=== PATIENT | female | born 1975 | race Caucasian/White ===

== ENCOUNTER 2017-03-01 15:55 | Emergency (ER) | payer OTHER ==
[~2017-03-01] VITALS: Ht 170.2 cm; Wt 92.3 kg
[~2017-03-01 15:55] MED LIST: HYDR-2768 PO; NAPR500 PO; PERC5TAB12 PO; SYNT137T PO; ZOFR4TAB3 PO
[2017-03-01 15:58] VITALS: BP 155/100; PULSE 71; RESP 19; TEMP 97.5; O2SAT 100
[2017-03-01] MEDS ORDERED: SODIUM CHLOR 0.9% 1000 ML INJ 1,000 ML IV SCH (16:07)
--- NOTE | 2017-03-01 16:09 | PD ---
HPI Chief Complaint: Abdominal Pain Time Seen by Provider: 16:03 Travel History International Travel<30 days: No Contact w/Intl Traveler<30days: No Traveled to known affect area: No History of Present Illness HPI 41-year-old female arrives to the ER with generalized abdominal pain for about 16 hours or so. It woke her up from sleep. She's had diarrhea and tenesmus essentially continuously. Nausea reported. No vomiting. No fever. Appetite decreased. No vaginal bleeding discharge or urinary complaint. Pain is constant and worse with palpation. PFSH Past Medical History Depression: Yes Diminished Hearing: No Immunizations Current: Yes Thyroid Disease: Yes Influenza Vaccination: Yes ?: Not LMP: 2 WEEKS : 1 Para: 1 Past Surgical History Cholecystectomy: Yes Social History Alcohol Use: Yes (SOCIAL) Tobacco Use: No Substance Use: No Allergies-Medications (Allergen,Severity, Reaction): Coded Allergies: Morphine (Verified Allergy, Intermediate, 03/01/17) Reported Meds & Prescriptions Reported Meds & Active Scripts Active Flagyl (Metronidazole) 500 Mg Tab 500 Mg PO TID 10 Days Cipro (Ciprofloxacin HCl) 500 Mg Tab 500 Mg PO BID 10 Days Phenergan (Promethazine HCl) 25 Mg Tab 25 Mg PO Q6H PRN Reported Clonazepam 0.5 Mg Tab 0.5 Mg PO HS Ambien (Zolpidem Tartrate) 10 Mg Tab 10 Mg PO HS PRN Zoloft (Sertraline HCl) 100 Mg Tab 100 Mg PO DAILY Synthroid (Levothyroxine Sodium) 137 Mcg Tab 137 Mcg PO DAILY Review of Systems Except as stated in HPI: all other systems reviewed are Neg General / Constitutional: No: Fever Gastrointestinal: Positive: Nausea, Diarrhea, Abdominal Pain, No: Vomiting, Hematemesis, Hematochezia, Constipation Physical Exam Narrative GENERAL: 41-year-old female well-nourished well-developed male to moderate distress secondary to pain SKIN: Focused skin assessment warm/dry. HEAD: Atraumatic. Normocephalic. EYES: Pupils equal and round. No scleral icterus. No injection or drainage. ENT: No nasal bleeding or discharge. Mucous membranes pink and moist. NECK: Trachea midline. No JVD. CARDIOVASCULAR: Regular rate and rhythm. No murmur appreciated. RESPIRATORY: Lungs clear. No tachypnea GASTROINTESTINAL: Soft. Diffuse nonspecific tenderness. MUSCULOSKELETAL: No obvious deformities. No clubbing. No cyanosis. No edema. NEUROLOGICAL: Awake and alert. No obvious cranial nerve deficits. Motor grossly within normal limits. Normal speech. PSYCHIATRIC: Appropriate mood and affect; insight and judgment normal. Data Data Last Documented VS Vital Signs Date Time Temp Pulse Resp B/P Pulse Ox O2 Delivery O2 Flow Rate FiO2 03/01/17 18:26 70 18 140/89 97 Room Air 03/01/17 15:58 97.5 VS reviewed Orders Complete Blood Count With Diff (03/01/17 16:07) Comprehensive Metabolic Panel (03/01/17 16:07) Lipase (03/01/17 16:07) Lactic Acid (03/01/17 16:07) Urinalysis - C+S If Indicated (03/01/17 16:07) Iv Access Insert/Monitor (03/01/17 16:07) Ecg Monitoring (03/01/17 16:07) Oximetry (03/01/17 16:07) Hydromorphone Pf Inj (Dilaudid Pf Inj) (03/01/17 16:15) Ondansetron Inj (Zofran Inj) (03/01/17 16:15) Sodium Chlor 0.9% 1000 Ml Inj (Ns 1000 M (03/01/17 16:07) Sodium Chloride 0.9% Flush (Ns Flush) (03/01/17 16:15) Ed Urine Pregnancytest Poc (03/01/17 16:07) Labs Laboratory Tests Test 03/01/17 03/01/17 03/01/17 16:20 17:17 18:10 White Blood Count 9.8 TH/MM3 Red Blood Count 5.11 MIL/MM3 Hemoglobin 14.6 GM/DL Hematocrit 43.5 % Mean Corpuscular Volume 85.0 FL Mean Corpuscular Hemoglobin 28.5 PG Mean Corpuscular Hemoglobin 33.5 % Concent Red Cell Distribution Width 13.2 % Platelet Count 323 TH/MM3 Mean Platelet Volume 9.4 FL Neutrophils (%) (Auto) 77.1 % Lymphocytes (%) (Auto) 17.1 % Monocytes (%) (Auto) 4.4 % Eosinophils (%) (Auto) 0.3 % Basophils (%) (Auto) 1.1 % Neutrophils # (Auto) 7.6 TH/MM3 Lymphocytes # (Auto) 1.7 TH/MM3 Monocytes # (Auto) 0.4 TH/MM3 Eosinophils # (Auto) 0.0 TH/MM3 Basophils # (Auto) 0.1 TH/MM3 CBC Comment DIFF FINAL Differential Comment Sodium Level 142 MEQ/L Potassium Level 3.8 MEQ/L Chloride Level 108 MEQ/L Carbon Dioxide Level 25.2 MEQ/L Anion Gap 9 MEQ/L Blood Urea Nitrogen 9 MG/DL Creatinine 0.75 MG/DL Estimat Glomerular Filtration 85 ML/MIN Rate Random Glucose 93 MG/DL Lactic Acid Level 1.3 mmol/L Calcium Level 8.7 MG/DL Total Bilirubin 0.4 MG/DL Aspartate Amino Transf 12 U/L (AST/SGOT) Alanine Aminotransferase 20 U/L (ALT/SGPT) Alkaline Phosphatase 75 U/L Total Protein 7.4 GM/DL Albumin 3.8 GM/DL Lipase 151 U/L Urine Color YELLOW Urine Turbidity CLEAR Urine pH 5.5 Urine Specific [place] 1.029 Urine Protein TRACE mg/dL Urine Glucose (UA) NEG mg/dL Urine Ketones TRACE mg/dL Urine Occult Blood NEG Urine Nitrite NEG Urine Bilirubin NEG Urine Leukocyte Esterase NEG Urine RBC 0-3 /hpf Urine WBC 0-2 /hpf Urine Squamous Epithelial 0-5 /hpf Cells Urine Bacteria OCC /hpf Urine Mucus MOD /lpf Microscopic Urinalysis Comment CULT NOT INDICATED MDM Medical Decision Making Medical Screen Exam Complete: Yes Emergency Medical Condition: Yes Medical Record Reviewed: Yes Differential Diagnosis Constipation, Gastritis, Acute Cholecystitis, Biliary Colic, Pancreatitis, SHABAZZ , Hepatitis, Bowel Obstruction, Cystitis, Mesenteric Ischemia, AAA, Appendicitis , Renal Stone/Hydronephrosis, GERD, perforated viscous Narrative Course CBC & BMP Diagram 03/01/17 16:20 03/01/17 17:17 LFTs/Lipase normal Lactic acid 1.3 Patient reports upon reassessment similar episode occurred about one month prior and resolved after she adopted a liquid diet. She wonders if diverticulitis is a consideration. It could be. Cipro Flagyl prescribed. Continue dietary modification. The patient is resting comfortably and feels better, is alert and in no distress. The patients results and examination findings were discussed. The repeat examination is unremarkable and benign. The history, exam, diagnostic testing, and current condition do not suggest any significant pathology to warrant further testing, continued ED treatment, admission, or surgical evaluation at this point. The vital signs have been stable. The patient does not have uncontrollable pain, intractable vomiting, or other significant symptoms. The patient's condition is stable and appropriate for discharge. The patient will pursue further outpatient evaluation with a primary care physician or other designated or consulting physician as indicated in the discharge instructions. The patient expressed understanding and was agreeable with this plan. Diagnosis Primary Impression: Diarrhea Qualified Code: R19.7 - Diarrhea, unspecified type Additional Impression: Abdominal pain Qualified Code: R10.9 - Abdominal pain, unspecified location Referrals: Primary Care Physician 2 days Additional Instructions: You have a choice when it comes to health care, and we are glad that you chose [email or web address]. Hopefully, we have met your expectations on today's visit. You are welcome to return to [email or web address] at any time, as we are committed to meeting the health care needs of our community. Med/Other Pt SpecificInfo: Prescription(s) given Scripts Metronidazole (Flagyl)500 Mg [id number] Mg PO TID 10 Days Ref 0 Prov:Mello Muñiz MD 03/01/17 Ciprofloxacin (Cipro)500 Mg [id number] Mg PO BID 10 Days Ref 0 Prov:Mello Muñiz MD 03/01/17 Promethazine (Phenergan)25 Mg Tab25 Mg PO Q6H PRN (Nausea/Vomiting) #10 TAB Ref 0 Prov:Mello Muñiz MD 03/01/17 Disposition: 01 DISCHARGE HOME Condition: Stable Mello Muñiz MD March 01, 2017 16:09
[2017-03-01] MEDS ORDERED: CLON0.5T PO (16:10)
[2017-03-01] MEDS ORDERED: LEVO-86 PO (16:10)
[2017-03-01] MEDS ORDERED: ZOLO100T PO (16:10)
[2017-03-01] MEDS ORDERED: AMBI10TA PO (16:10)
[2017-03-01] MEDS ORDERED: SODIUM CHLORIDE 0.9% FLUSH 10 ML FLUSH IV FLUSH PRN (16:15)
[2017-03-01] MEDS ORDERED: ONDANSETRON HCL 4 MG/2 ML VIAL IVP ONE (16:15)
[2017-03-01] MEDS ORDERED: HYDROmorphone HCL PF 2 MG/ML VIAL IVS ONE (16:15)
[2017-03-01 16:29] VITALS: BP 144/100; PULSE 77; RESP 18; O2SAT 99
[2017-03-01 17:01] LABS: AUTOMATED NEUTROPHIL # 7.6 TH/MM3 (1.8-7.7); BASOPHIL # 0.1 TH/MM3 (0-0.2); BASOPHIL % 1.1 % (0.0-2.0); EOSINOPHIL % 0.3 % (0.0-4.0); HEMATOCRIT 43.5 % (35.0-46.0); LYMPH % 17.1 % (9.0-44.0); LYMPHOCYTE # 1.7 TH/MM3 (1.0-4.8); MEAN CORPUSCULAR HEMOGLOBIN 28.5 PG (27.0-34.0); MEAN CORPUSCULAR HGB CONC 33.5 % (32.0-36.0); MONO % 4.4 % (0.0-8.0); NEUT % 77.1 % (16.0-70.0); PLATELET COUNT 323 TH/MM3 (150-450); RED BLOOD COUNT 5.11 MIL/MM3 (4.00-5.30); RED CELL DISTRIBUTION WIDTH 13.2 % (11.6-17.2); WHITE BLOOD COUNT 9.8 TH/MM3 (4.0-11.0)
[2017-03-01 17:03] LABS: HEMO FLAGS DIFF FINAL
[2017-03-01 17:06] VITALS: RESP 18
[2017-03-01 17:34] LABS: CHLORIDE 108 MEQ/L (98-107); POTASSIUM 3.8 MEQ/L (3.5-5.1); SODIUM (NA) 142 MEQ/L (136-145)
[2017-03-01 17:38] LABS: ANION GAP 9 MEQ/L (5-15); BICARBONATE 25.2 MEQ/L (21.0-32.0); BLOOD UREA NITROGEN 9 MG/DL (7-18)
[2017-03-01 17:41] LABS: ALT (GPT) 20 U/L (10-53); AST (GOT) 12 U/L (15-37); GLOMERULAR FILTRATION RATE 85 ML/MIN (>89)
[2017-03-01 17:42] LABS: TOTAL BILIRUBIN ADULT 0.4 MG/DL (0.2-1.0)
[2017-03-01 17:43] LABS: ALKALINE PHOSPHATASE 75 U/L (45-117)
[2017-03-01 18:26] VITALS: BP 140/89; PULSE 70; RESP 18; O2SAT 97
[2017-03-01 18:36] LABS: BLOOD, URINE NEG (NEG); GLUCOSE,URINE NEG (NEG); KETONE, URINE TRACE mg/dL (NEG); NITRITE,URINE NEG (NEG); PH, URINE 5.5 (5.0-8.5)
[2017-03-01] MEDS ORDERED: PROM25TA5 PO (18:47)
[2017-03-01 18:53] LABS: MUCUS URINE MOD /lpf (OCC); SQUAMOUS EPITHELIAL CELL URINE 0-5 /hpf (0-5); URINE COLOR YELLOW (YELLW/STRAW)
[2017-03-01 18:54] LABS: BACTERIA, URINE OCC /hpf; RBC, URINE 0-3 /hpf (0-3); WBC, URINE 0-2 /hpf (0-5)
[2017-03-01 18:55] LABS: COMMENT (UR) CULT NOT INDICATED; CULTURE IF INDICATED CULT NOT INDICATED
[2017-03-01] MEDS ORDERED: METR-1 PO (19:03)
[2017-03-01] MEDS ORDERED: CIPR-9 PO (19:03)
== END 2017-03-01 19:11 | disposition home or self-care (01) ==
LOC: PHED 15:55
DX: R19.7 Diarrhea, unspecified (principal); R10.84 Generalized abdominal pain; E07.9 Disorder of thyroid, unspecified
CPT/HCPCS: 80053; 81001; 83605; 83690; 84703; 85025; 96361; 96374; 96375; 99284; J1170; J2405; J7030